=== PATIENT | female | born 1980 | race Caucasian/White ===

== ENCOUNTER 2020-08-03 17:49 | Inpatient (IN) | payer BC, SELFPAY ==
[~2020-08-03] VITALS: Ht 162.6 cm; Wt 95.5 kg
[2020-08-03] MEDS ORDERED: ONDANSETRON 4MG/2ML VIAL IV ONE (18:40)
[2020-08-03] MEDS: MORPHINE 4 MG/ML 1ML VIAL/SYRINGE (J2270) IV PRN (18:48)
--- NOTE | 2020-08-03 19:20 | REP ---
INDICATION: fracture w inadequate splinting. COMPARISON: None. TECHNIQUE: Three views of the right tib fib are presented. FINDINGS: Three views of the right calf demonstrate a displaced distal tibial diaphyseal fracture. There is posterior displacement and override on the lateral radiograph. There is an associated overriding fracture of the proximal fibular diaphysis.. On the lateral radiograph there is a intra-articular fracture through the posterior tibial malleolus as well. The visualized distal femur and patella appear intact.. . No opaque foreign body seen. IMPRESSION: Displaced distal tibial fracture. Posterior malleolar intra-articular fracture of the distal tibia. Overriding fracture of the proximal fibular diametaphyseal region.. <Electronically signed by Ron Vigil > 08/03/201915
--- NOTE | 2020-08-03 19:38 | CR.PDOC ---
General Date of Consultation: Aug 03, 2020 Referring Provider: CHRISTY GIL MD Consultation TIME OF SERVICE 815PM REASON FOR CONSULTATION/CHIEF COMPLAINT: leg pain HISTORY OF PRESENT ILLNESS: While walking down some stairs this morning, this 40 yr old F, slipped and fell. Her right foot landed in between 2 stairs while her left leg deviated sideways. As soon as she fell she reports "knowing" that her leg was broken which was confirmed with xray findings of tibial and fibular fractures. After receiving morphine her pain improved from 10/10 to 4/10 in severity. Prior to the fall she reports feeling well, denied having f/c/n/v/d chest pain, dyspnea dizziness or any other acute c/o. ROS:12 pt ROS negative except as listed in HPI PMH/PSH L5-S1 fusion to repair ruptured disk 7 yrs ago SH + tobacco / + alcohol 1 x a week / -recreational drugs / works at a [employer] COPD, HTN NKDA HOME MEDICATIONS: none PHYSICAL EXAMINATION: Vital Signs Date Time Temp Pulse Resp B/P (MAP) Pulse Ox O2 Delivery O2 Flow Rate FiO2 08/03/20 18:02 98.2 74 18 134/83 (100) 99 Room Air GENERAL APPEARANCE: NAD HEENT: EOMI RESPIRATORY: CTAB on RA CARDIOVASCULAR: RRR/NMRG EXTREMITIES: KATHY in upper extremities and LLE / RLE swollen NEUROLOGICAL: CN 2-12 intact /speech not dysarthric PSYCHIATRIC: A&O x 3 / able to understand and follow all commands LABORATORY DATA: 08/03/20 19:33 08/03/20 19:49 IMAGING STUDIES XRAY "IMPRESSION: Displaced distal tibial fracture. Posterior malleolar intra- articular fracture of the distal tibia. Overriding fracture of the proximal fibular diametaphyseal region." ASSESSMENT/PLAN: is a 40 yr old F w a hx of back surgery who sustained a mechanical fall resulting in right tib/fib and posterior malleolar fractures; we we consulted for medical co-management and halie-operative clearance. 1. Right tib/fib and posterior malleolar fractures Plan: per primary team 2. Halie-operative evaluation She has no acute chronic medical problems & doesn't take any medications. Her RCRI score = 0, therefore she doesn't need any testing prior to proceeding with surgery. Thank you for consulting us, we will sign off, please feel free to reconsult us if any acute medical issues occur. Allergies Coded Allergies: No Known Allergies (Verified Allergy, Unknown, 08/03/20) Home Medications No Active Prescriptions or Reported Meds GEOFF BURGER MD Aug 03, 2020 19:38
[2020-08-03 20:28] LABS: BASO # 0.1 10^3/uL (0.0-0.2); BASO % 0.5 % (0.0-1.0); EOS # 0.1 10^3/uL (0.0-0.5); EOS % 0.6 % (0.0-3.0); HEMATOCRIT 45.5 % (36.0-47.0); HEMOGLOBIN 14.8 g/dl (12.0-15.5); LYMPH # 3.2 10^3/uL (1.5-5.0); LYMPH % 21.8 % (24.0-44.0); MEAN CORPUSCULAR HEMOGLOBIN 30.4 pg (27.0-33.0); MEAN CORPUSCULAR HGB CONC 32.5 g/dl (32.0-36.5); MEAN CORPUSCULAR VOLUME 93.4 fl (80.0-96.0); MONO # 1.3 10^3/uL (0.0-0.8); MONO % 9.1 % (2.0-8.0); NEUTROPHILS # 9.8 10^3/uL (1.5-8.5); NEUTROPHILS % 67.6 % (36.0-66.0); PLATELET COUNT, AUTOMATED 257 10^3/uL (150-450); RED BLOOD COUNT 4.87 10^6/uL (4.00-5.40); WHITE BLOOD COUNT 14.4 10^3/uL (4.0-10.0)
[2020-08-03 20:46] LABS: ALBUMIN 3.8 GM/DL (3.2-5.2); ALT/SGPT 23 U/L (12-78); BILIRUBIN,TOTAL 0.9 MG/DL (0.2-1.0); BLOOD UREA NITROGEN 11 MG/DL (7-18); CALCIUM LEVEL 8.9 MG/DL (8.5-10.1); CARBON DIOXIDE LEVEL 27 MEQ/L (21-32); CHLORIDE LEVEL 108 MEQ/L (98-107); GLOMERULAR FILTRATION RATE > 60.0 (>60); GLUCOSE, FASTING 78 MG/DL (70-100); POTASSIUM SERUM 4.2 MEQ/L (3.5-5.1); SODIUM LEVEL 139 MEQ/L (136-145); TOTAL PROTEIN 6.5 GM/DL (6.4-8.2)
[2020-08-03] MEDS ORDERED: ONDANSETRON 4MG/2ML VIAL IV PRN (21:20)
[2020-08-03] MEDS ORDERED: MOM 30ML SUSPENSION UDC PO PRN (21:20)
[2020-08-03] MEDS ORDERED: BISACODYL 10 MG SUPP PR PRN (21:20)
[2020-08-03] MEDS ORDERED: ACETAMINOPHEN TAB 650MG DOSE (2X325MG) PO PRN (21:20)
--- NOTE | 2020-08-03 22:21 | REPVR ---
PROCEDURE INFORMATION: Exam: CT Right Lower Extremity Without Contrast, Ankle Exam date and time: 08/03/2020 9:37 PM Age: 40 years old Clinical indication: Injury or trauma; Fall; Fracture, traumatic; Nondisplaced; Ankle; Right; Not specified; Additional info: Assess for intra articular fracture TECHNIQUE: Imaging protocol: CT of the Right lower extremity without contrast was performed. Exam focused on the ankle. Radiation optimization: All CT scans at this facility use at least one of these dose optimization techniques: automated exposure control; mA and/or kV adjustment per patient size (includes targeted exams where dose is matched to clinical indication); or iterative reconstruction. COMPARISON: No relevant prior studies available. FINDINGS: Bones/joints: There is an oblique comminuted fracture of the distal tibial diaphysis. The distal fragment is laterally displaced 1.6 cm. A linear component of the fracture extends inferiorly through the posterior tibial cortex into the posterior tibial plafond. Tibial plafond fracture is nondisplaced. One punctate bone fragment is present in the lateral ankle mortise. Distal tib-fib alignment is normal. Normal alignment at the ankle. Talar dome is intact. Soft tissues: Generalized soft tissue swelling in the foreleg and ankle. No foreign bodies. IMPRESSION: 1. Comminuted fracture of the tibial diaphysis with vertical component extending into the posterior tibial plafond. 2. One punctate bone fragment in the lateral ankle mortise. Electronically signed by: Sunny Mayo On 08/03/2020 22:21:51 PM
[2020-08-03 22:50] VITALS: BP 138/76
[2020-08-03] MEDS: NORCO, ANEXSIA 5/325MG TABLET (HYDROcodone/ACETAMINOPHEN) PO PRN (22:52)
[2020-08-03] MEDS: NS 1,000 ML IV SCH (23:57)
[2020-08-04] MEDS: MORPHINE 4 MG/ML 1ML VIAL/SYRINGE (J2270) IV PRN (00:38)
--- NOTE | 2020-08-04 02:26 | ECGEPIP ---
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
[2020-08-04] MEDS: NS 1,000 ML IV SCH ×3 (05:18→17:23)
[2020-08-04] MEDS: NORCO, ANEXSIA 5/325MG TABLET (HYDROcodone/ACETAMINOPHEN) PO PRN ×2 (06:24→15:03)
[2020-08-04] MEDS ORDERED: MIDAZOLAM INJ 2MG/2ML VIAL (J2250 PER 1MG) IV PRN (07:01)
[2020-08-04] MEDS ORDERED: fentaNYL 100 MCG/2 ML INJECTION (J3010) IV PRN (07:01)
[2020-08-04] MEDS ORDERED: INFLUENZA QUADRIVALENT PF VACCINE 0.5ML SYRINGE IM ONE (09:00)
[2020-08-04] MEDS: MORPHINE 2 MG/ML 1ML VIAL (J2270) IV PRN ×2 (09:24→15:25)
--- NOTE | 2020-08-04 10:23 | HPE ---
HISTORY AND PHYSICAL DATE OF ADMISSION: 08/03/2020 CHIEF COMPLAINT: Right tibia fracture. HISTORY OF PRESENT ILLNESS: This 40-year-old female had a slip and fall. She got her leg caught between two steps this morning going out of her house. No loss of consciousness or head injury. She was seen at [facility]. She was transferred here. This is a closed fracture, neurovascularly intact. No prior injury, pain or problems with the right lower extremity. PAST MEDICAL HISTORY: Nil. MEDICATIONS: None. ALLERGIES: No known drug allergies. SURGICAL HISTORY: 1. Spine surgery seven years ago, ruptured disc repair at L5-S1. 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, [employer] She smokes half a pack of cigarettes per day. PHYSICAL EXAMINATION: This is a well-appearing 40-year-old female in no acute distress. Closed injury to right lower extremity with obvious external rotation deformity. Compartments are soft. Pain is 4/10. No pain up at the knee or down at the ankle. She can wiggle her toes. Normal sensation throughout the foot. Superficial and deep peroneal nerves as well as saphenous, sural and tibial. Strong dorsalis pedis pulse. Foot is warm and well-perfused. No pain to left lower extremity. She is alert and oriented times three. Vital signs are stable. X-rays are reviewed of the right tibia and fibula. This shows a displaced spiral distal one-third tibial shaft fracture as well as a proximal fibula fracture near the neck. ASSESSMENT AND PLAN: This 40-year-old female has a distal one-third spiral tibial shaft fracture as well as associated proximal fibula fracture. I recommend admission under the orthopedic service and consultation by the hospitalist service to clear for surgery. We will obtain a CT scan of her ankle to assess for intraarticular extension, possible need for surgical fixation. We discussed the pros, cons, risks, and benefits of nonsurgical management versus cast treatment versus open reduction internal fixation in the form of intermedullary nail and likely thru a suprapatellar approach. The risks of surgery and nonsurgery were discussed. Possible surgical risks include, but are not limited to infection, pain, stiffness, weakness, damage to surrounding structures, neurovascular injury, delayed malunion or nonunion, increased chance due to smoking (I strongly counseled her to quit or cut back) bleeding, anesthetic complications, blood clots, , other risks, as well as need for further surgery or revision. She understands and wishes to proceed. She signed the consent form for surgery as well as the possible need for blood products. The pros and cons, risks and benefits were discussed with her as well. Marked the right lower extremity. We will order a STAT CT of the right lower extremity, follow up on that and make her TRINA for now and nothing by mouth at midnight. The next day is planned for surgery as an add-on case in the early evening tomorrow. The patient understands and had no further questions.
[2020-08-04 14:00] VITALS: BP 124/77
[2020-08-04] MEDS ORDERED: BUPIVACAINE/EPIN 0.25% 30 ML VIAL As Ordered ONE (18:02)
[2020-08-04] MEDS ORDERED: ceFAZolin 1GM VIAL (J0690 PER 500MG) As Ordered ONE (18:03)
[2020-08-04] MEDS ORDERED: MIDAZOLAM INJ 2MG/2ML VIAL (J2250 PER 1MG) As Ordered ONE ×2 (18:08→18:41)
[2020-08-04] MEDS ORDERED: EPINEPHrine INJ 1 MG/ML 1ML AMP As Ordered ONE (18:08)
[2020-08-04] MEDS ORDERED: dexameTHASONE 10MG/1ML VIAL PRES.FREE (J1100 PER 1MG) As Ordered ONE (18:08)
[2020-08-04] MEDS ORDERED: fentaNYL 100 MCG/2 ML INJECTION (J3010) As Ordered ONE ×3 (18:08→20:57)
[2020-08-04] MEDS ORDERED: BUPIVACAINE HCL 0.5% 30 ML VIAL As Ordered ONE (18:08)
[2020-08-04] MEDS ORDERED: LIDOCAINE 1% MDV 20ML VIAL As Ordered ONE (18:09)
[2020-08-04] MEDS ORDERED: LIDOCAINE 1% MDV 20ML VIAL XX ONE (18:10)
[2020-08-04] MEDS ORDERED: BUPIVACAINE HCL 0.5% 30 ML VIAL XX ONE (18:10)
[2020-08-04] MEDS ORDERED: EPINEPHrine INJ 1 MG/ML 1ML AMP XX ONE (18:10)
[2020-08-04] MEDS ORDERED: ACETAMINOPHEN 1000MG 100ML IV BTL (OFIRMEV) (J0131 PER 10MG) As Ordered ONE (18:15)
[2020-08-04] MEDS ORDERED: ROCURONIUM BROMIDE 50 MG/5 ML VIAL As Ordered ONE (18:15)
[2020-08-04] MEDS ORDERED: LIDOCAINE 2% 100MG/5ML SDV (FOR ANES.) As Ordered ONE (18:15)
[2020-08-04] MEDS ORDERED: ONDANSETRON 4MG/2ML VIAL As Ordered ONE (18:15)
[2020-08-04] MEDS ORDERED: dexameTHASONE 4 MG/ML 1ML VIAL (J1100 PER 1MG) As Ordered ONE (18:15)
[2020-08-04] MEDS ORDERED: KETOROLAC 60MG 2ML VIAL As Ordered ONE (18:15)
[2020-08-04] MEDS ORDERED: propofoL 200 MG/20 ML VIAL As Ordered ONE (18:15)
[2020-08-04] MEDS ORDERED: SUGAMMADEX SODIUM 500 MG/5 ML VIAL (BRIDION) As Ordered ONE (18:15)
[2020-08-04] MEDS ORDERED: LIDOCAINE 5% OINT 30GM TUBE As Ordered ONE (18:24)
[2020-08-04] MEDS ORDERED: TRANEXAMIC ACID 100 MG/ML 10ML VIAL As Ordered ONE (19:05)
[2020-08-04] MEDS ORDERED: ceFAZolin 2 GM/D5W 50 ML IV BAG (J0690 PER 500MG) As Ordered ONE (19:05)
[2020-08-04] MEDS ORDERED: HYDROmorphone HCL 2 MG/ML 1ML VIAL (J1170) As Ordered ONE (19:25)
[2020-08-04] MEDS ORDERED: oxyCODONE 5MG TAB As Ordered ONE (20:56)
[2020-08-04] MEDS: fentaNYL 100 MCG/2 ML INJECTION (J3010) IV PRN ×3 (21:00→21:21)
[2020-08-04] MEDS ORDERED: HYDROMORPHONE HCL 0.5 MG/ 0.5 ML SYRINGE (J1170 PER 1) As Ordered ONE (21:30)
[2020-08-04] MEDS ORDERED: oxyCODONE 5MG TAB PO PRN (21:55)
[2020-08-04] MEDS ORDERED: HYDROMORPHONE HCL 0.5 MG/ 0.5 ML SYRINGE (J1170 PER 1) IV PRN (21:55)
[2020-08-04] MEDS ORDERED: ONDANSETRON 4MG/2ML VIAL IV PRN (21:55)
[2020-08-04] MEDS ORDERED: LR 1,000 ML IV SCH ×2 (21:55→22:00)
[2020-08-04] MEDS ORDERED: MORPHINE 2 MG/ML 1ML VIAL (J2270) IV PRN (22:00)
[2020-08-04] MEDS ORDERED: PERCOCET 5MG/325MG TAB PO PRN (22:00)
[2020-08-04 22:15] VITALS: BP 123/75
[2020-08-04 22:45] VITALS: BP 122/73
[2020-08-04 23:45] VITALS: BP 125/73
[2020-08-05 00:45] VITALS: BP 129/74
[2020-08-05 01:45] VITALS: BP 129/70
[2020-08-05 02:45] VITALS: BP 124/68
[2020-08-05 06:00] VITALS: BP 129/75
--- NOTE | 2020-08-05 13:29 | REP ---
INDICATION: RIGHT TIBIA SUPRAPATELLAR NAIL. COMPARISON: 08/03/2020. TECHNIQUE: Six C-arm views right lower leg performed. FINDINGS: Intramedullary britta is placed in the right tibia. Fracture of the distal tibia is well aligned. There are 2 metallic screws in the distal tibia, and 2 in the proximal tibia. Proximal fibular fracture appears well aligned. Ankle mortise is anatomic. IMPRESSION: 242 seconds of fluoroscopy time utilized for the procedure. <Electronically signed by Jean Claude Kessler > 08/05/20 1151
--- NOTE | 2020-08-07 10:06 | RO ---
OPERATIVE NOTE DATE OF OPERATION: 08/04/2020 PREOPERATIVE DIAGNOSIS: Right distal tibia fracture. POSTOPERATIVE DIAGNOSIS: Right distal tibia fracture. PLANNED PROCEDURE: Right tibia open reduction and internal fixation. PROCEDURE PERFORMED: Right tibia open reduction and internal fixation (intramedullary nail, Synthes suprapatellar nail plus anterior to posterior 4.0 mm cannulated screw). SURGEON: Benito Cardoza MD STEPDOWN NURSE: OPERATIVE PREAMBLE: This is a 40-year-old female who sustained a closed rotational fracture of the distal tibia with extension to the posterior tibial plafond. We discussed pros, cons, risks and benefits for an open reduction and internal fixation. She wished to proceed. She had no further questions. The right lower extremity was marked and we proceeded to surgery. DESCRIPTION OF PROCEDURE: The patient was brought to the operating room theater. She was placed supine on the operating room table. All bony prominences were padded. A bump was placed under the right hip. A 34-inch tourniquet was applied to the right thigh appropriately padded. Bone foam leg positioner was used to flex the leg. General anesthesia was induced. Two grams of IV Ancef plus one gram of IV tranexamic acid was administered prior to the start of the case. The limb was prepped and draped with chlorhexidine based prep solution, allowing over three minutes for prep solution drying time prior to draping. A preoperative time-out was performed, confirming the site, the patient, and surgery. We began by inserting a guidewire for a 4.0 mm partially threaded cannulated screw from anterior to posterior centered slightly lateral to the ankle just above the level of the joint. I inserted this to fixate the posterior malleolus and displaced fracture fragment. I overdrilled the near cortex and then inserted a 32 mm long screw to capture the posterior malleolus fragment and to ensure no displacement during intramedullary nail. I then inflated the tourniquet to 250 mmHg. Total tourniquet time 60 minutes. I began by making a small longitudinal incision centered just proximal to the patella in line with the fibers of the quadriceps tendon. I achieved meticulous hemostasis. I incised the distal end of the quadriceps tendon in line with the skin incision. I then passed the guide for the Synthes suprapatellar nail technique down to the level of the joint. I inserted the guidewire at the medial aspect of the lateral tibial spine on AP radiograph as well as at the anterior tibial step-off and flare on the lateral radiograph and down the center of the femoral canal as well as slightly posteriorly on the lateral radiograph. I used the entry reamer. A ball-tip guidewire was then passed with a small bend on the tip down to the level of the tibial plafond in the middle of the tibial plafond on both AP and lateral radiographs. I attempted to clamp the fracture with longitudinal traction with the foot in neutral position. This was proven quite difficult so I used an Esmarch wrapped tightly around the fracture site for approximately 15 minutes to achieve appropriate reduction. This was in slight retrograde and which I corrected manually and held in position throughout reaming. I sequentially reamed up to a size 11.5 mm. I selected a 330 length nail x 10 mm in diameter nail as the length of guidewire was measuring 340 at its total length. I inserted this, tapped it down past the fracture into appropriate depth on both AP and lateral radiographs. The fracture had through reaming and nail passage. I then inserted two using perfect ho-chunk percutaneous technique fully-threaded screws from medial to lateral as well as from anterior to posterior in the distal end of the nail, locking the nail in place distally. I then turned my attention proximally. On the lateral side, I used the static hole one. On the medial side, I used a static hole two to begin to perform locking of the nail in static fashion. I removed all the guides. I took final PA and lateral radiographs proximally and distally as well as the fracture site to confirm proper reduction and alignment as well as length and proper length of the nail and congruency of the joint surface. I let tourniquet down at 60 minutes. Bleeding was hemostased. I thoroughly irrigated the wounds including the intra-articular portion of the knee with normal saline. I closed the quadriceps split with [id number] #1 Vicryl sutures, three of those. I closed the subcutaneous tissue with 2-0 Vicryl, the skin with sawyer. 12 mL of 1/4% Marcaine with epinephrine was instilled around the incision sites. The skin was cleaned with wet and dry dressing followed by application of Adaptic, 4 x 8 gauze and ABD dressings followed by overwrapping with loosely wrapped six-inch Vini bandages, two of those. The drapes were removed. The patient was woken up from her general anesthetic, transferred off the operating table and taken to the postanesthesia care unit in stable condition. All sponge, needle, and instrument counts were correct. The cords were soft. The foot was well perfused after surgery. The patient was taken to the postanesthesia care unit in stable condition. All sponge, needle, and instrument counts were correct. No complications. Estimated blood loss: 30 mL. Plan for the patient is for partial weightbearing for six weeks time with crutches. She is able to be admitted to the hospital overnight with CSM checks every four hours and pain monitoring closely. I will round tomorrow morning to ensure safety for discharge home and followup in two weeks time. They can start immediate knee and ankle range of motion. I do not typically prescribe anticoagulation for lower extremity fractures in mobile patients although the patient is at slight risk being an overweight female and a smoker with recent orthopedic surgery. Followup on my review of the literature, my opinion is that is not strongly indicated overall for fractures below the knee.
== END 2020-08-05 15:45 | disposition home or self-care (01) | DRG 313 ==
LOC: M ED 17:49 → M ED INP 21:45 → M MS5PR 22:46
PROVIDERS: ADMIT Orthopaedic Surgery Sports Medicine; ATTEND Orthopaedic Surgery Sports Medicine
PROC: 0QSG06Z Reposition Right Tibia with Intramedullary Internal Fixation Device, Open Approach (ICD-10-PCS; principal; 2020-08-04 18:00)
DX: S82.301A Unspecified fracture of lower end of right tibia, initial encounter for closed fracture (principal); F17.210 Nicotine dependence, cigarettes, uncomplicated; S89.201A Unspecified physeal fracture of upper end of right fibula, initial encounter for closed fracture; W10.9XXA Fall (on) (from) unspecified stairs and steps, initial encounter; Y92.009 Unspecified place in unspecified non-institutional (private) residence as the place of occurrence of the external cause

== ENCOUNTER → 2020-09-15 | Outpatient (CLI) | payer BC ==
--- NOTE | 2020-09-15 12:13 | REP ---
INDICATION: F/U. COMPARISON: 08/03/2020. TECHNIQUE: There are two views. FINDINGS: There is an intramedullary britta stabilizing a spiral fracture in the distal shaft of the tibia in satisfactory position and alignment. There are interlocking screws proximally and distally. There is a spiral fracture in the head and neck of the fibula maintained in satisfactory position and alignment. IMPRESSION: Internal fixation as described. <Electronically signed by Jean Claude Mcnair > 09/15/20 [id number]
== END ==
LOC: M SOG 10:14
PROVIDERS: ATTEND Orthopaedic Surgery Sports Medicine
DX: S82.391D Other fracture of lower end of right tibia, subsequent encounter for closed fracture with routine healing (principal)

== ENCOUNTER → 2020-10-27 | Outpatient (CLI) | payer BC ==
--- NOTE | 2020-10-27 11:40 | REP ---
INDICATION: AFTERCARE. COMPARISON: 09/15/2020. TECHNIQUE: AP and lateral right lower leg. FINDINGS: Metallic internal fixation in the tibia is again noted unchanged. Fractures of proximal fibula and distal tibia are well aligned. IMPRESSION: Metallic internal fixation in the tibia unchanged in position, no change in alignment proximal fibular and distal tibial fractures. <Electronically signed by Jean Claude Kessler > 10/27/20 1137
== END ==
LOC: M SOG 11:19
PROVIDERS: ATTEND Orthopaedic Surgery Sports Medicine
DX: S82.391D Other fracture of lower end of right tibia, subsequent encounter for closed fracture with routine healing (principal); Z47.89 Encounter for other orthopedic aftercare